=== PATIENT | female | born 2000 | race Caucasian/White ===

== ENCOUNTER 2023-12-02 15:56 | Inpatient (IN) | payer MEDICARE, MEDICAID ==
[2023-12-02] MEDS: Sodium Chloride 0.9% 10 ML Syringe FLUSH PRN (17:04)
[2023-12-02 17:34] LABS: BASOPHILS PERCENT AUTO 0.3 % (0.0-1.0); HEMATOCRIT 49.4 % (37.0-47.0); HEMOGLOBIN 15.9 gm/dl (12.0-16.0); IMMATURE GRAN ABSOLUTE AUTO 0.06 K/mm3 (0.00-0.05); IMMATURE GRAN PERCENT AUTO 0.4 % (0.0-0.4); LYMPHOCYTES ABSOLUTE AUTO 1.3 K/mm3 (1.0-4.8); MEAN CORPUSCULAR HEMOGLOBIN 30.8 pg (28.0-32.0); MEAN CORPUSCULAR HGB CONC 32.2 g/dl (32.0-36.0); MEAN CORPUSCULAR VOLUME 95.6 fl (83.0-99.0); MEAN PLATELET VOLUME 8.8 fl (9.4-12.3); MONOCYTES PERCENT AUTO 6.8 % (0.0-8.0); NEUTROPHILS ABSOLUTE AUTO 12.5 K/mm3 (1.8-7.7); NEUTROPHILS PERCENT AUTO 83.5 % (41.0-71.0); PLATELET COUNT,PLT 511 K/mm3 (150-400); RED BLOOD CELL COUNT 5.17 M/mm3 (4.10-5.30); WHITE BLOOD CELL COUNT,WBC 14.97 K/mm3 (3.9-11.3)
[2023-12-02] MEDS: Dextrose 5%-0.9% NaCl 1,000 ML IV SCH (17:38)
[2023-12-02] MEDS: Ondansetron 4 MG/2 ML SDV IVPUSH ONE (17:38)
[2023-12-02 17:54] LABS: A/G RATIO 1.1 (1-2); ALANINE AMINOTRANSFERASE,ALT 11 U/L (14-59); ALBUMIN 4.5 g/dl (3.4-5.0); ALKALINE PHOSPHATASE 100 U/L (46-116); ANION GAP 32.4 (5-15); BILIRUBIN TOTAL 0.8 mg/dL (0.2-1.0); BLOOD UREA NITROGEN,BUN 16 mg/dL (7-18); CALCIUM 9.4 mg/dL (8.5-10.1); CHLORIDE,CL 102 mEq/L (98-107); CREATININE 0.2 mg/dL (0.55-1.02); ESTIMATED GFR 167 mL/min (>60); GLUCOSE RANDOM 65 mg/dL (70-99); LIPASE 11 U/L (16-77); PROTEIN TOTAL,TP 8.5 g/dl (6.4-8.2); SODIUM,NA 139 mEq/L (136-145)
[2023-12-02 17:57] LABS: CARBON DIOXIDE,CO2 9 mEq/L (21-32)
[2023-12-02 17:58] LABS: POTASSIUM,K 4.4 mEq/L (3.5-5.1)
[2023-12-02 17:59] LABS: ASPARTATE AMNIOTRANSFERASE,AST 32 U/L (15-37)
[2023-12-02 18:00] LABS: LACTIC ACID 1.4 mmol/L (0.4-2.0)
[2023-12-02] MEDS: diphenhydrAMINE 50 MG/ML SDV IVPUSH ONE (18:42)
[2023-12-02] MEDS: Metoclopramide 10 MG/2 ML SDV IVPUSH ONE (18:43)
[2023-12-02] MEDS ORDERED: Dextrose 5%-0.9% NaCl 500 ML IV SCH (18:45)
[2023-12-02] MEDS: Sodium Chloride 0.9% 1,000 ML IV SCH (19:11)
[2023-12-02] MEDS: Hydrocortisone Sodium Succinate 100 MG/2 ML SDV IVPUSH ONE (19:12)
[2023-12-02] MEDS ORDERED: Ondansetron 4 MG/2 ML SDV IVPUSH PRN (19:15)
[2023-12-02] MEDS ORDERED: Morphine 2 MG/ML SYRINGE IVPUSH PRN (19:16)
[2023-12-02] MEDS ORDERED: Naloxone 0.4 MG/ML SDV IVPUSH PRN (19:16)
[2023-12-02] MEDS ORDERED: Acetaminophen 325 MG Tab PO PRN (19:59)
[2023-12-02] MEDS ORDERED: Ondansetron 4 MG Tab.DIS PO PRN (19:59)
[2023-12-02] MEDS ORDERED: oxyCODONE 5 MG Tab PO PRN (19:59)
[2023-12-02] MEDS ORDERED: Sennosides/Docusate Sodium 50-8.6 MG Tab PO PRN (19:59)
[2023-12-02] MEDS: cefTRIAXone 2 GM in Sodium Chloride 0.9% 100 ML IV SCH (20:22)
[2023-12-02] MEDS: Pantoprazole 40 MG Vial IVPUSH SCH (20:50)
[2023-12-02] MEDS: metroNIDAZOLE/Normal Saline 500 MG in Premix Bag 1 BAG IV SCH (21:28)
[2023-12-02 22:59] LABS: APPEARANCE,URINE CLEAR (Clear); BILIRUBIN,URINE NEGATIVE (Negative); COLOR,URINE YELLOW (Yellow); GLUCOSE,URINE TRACE (Negative); KETONES,URINE 4+ (Negative); LEUKOCYTE ESTERASE,URINE NEGATIVE (Negative); NITRITE,URINE NEGATIVE (Negative); OCCULT BLOOD,URINE 1+ (Negative); PH,URINE 5.5 (5.0-8.0); PROTEIN,URINE NEGATIVE (Negative); UROBILINOGEN,URINE 0.2 (0.2-1.0)
[2023-12-02 23:07] LABS: BACTERIA,URINE MODERATE /hpf (FEW); EPITHELIAL CELLS,URINE 0-5 /hpf (0-5); MUCUS,URINE FEW /hpf (FEW); WBC,URINE 0-5 /hpf (0-5)
[2023-12-02] MEDS: Lactated Ringers 1,000 ML IV SCH (23:42)
[2023-12-02] MEDS: Melatonin 3 MG Tab PO PRN (23:42)
[2023-12-03 05:55] LABS: BASOPHILS PERCENT AUTO 0.2 % (0.0-1.0); HEMATOCRIT 37.8 % (37.0-47.0); IMMATURE GRAN ABSOLUTE AUTO 0.05 K/mm3 (0.00-0.05); IMMATURE GRAN PERCENT AUTO 0.4 % (0.0-0.4); LYMPHOCYTES PERCENT AUTO 8.1 % (24.0-44.0); MEAN CORPUSCULAR HEMOGLOBIN 31.1 pg (28.0-32.0); MEAN CORPUSCULAR HGB CONC 33.3 g/dl (32.0-36.0); MEAN CORPUSCULAR VOLUME 93.3 fl (83.0-99.0); MEAN PLATELET VOLUME 8.4 fl (9.4-12.3); MONOCYTES PERCENT AUTO 8.1 % (0.0-8.0); NEUTROPHILS ABSOLUTE AUTO 10.5 K/mm3 (1.8-7.7); NEUTROPHILS PERCENT AUTO 83.2 % (41.0-71.0); RED BLOOD CELL COUNT 4.05 M/mm3 (4.10-5.30); WHITE BLOOD CELL COUNT,WBC 12.63 K/mm3 (3.9-11.3)
[2023-12-03 06:11] LABS: HEMOGLOBIN 12.6 gm/dl (12.0-16.0); PLATELET COUNT,PLT 374 K/mm3 (150-400)
[2023-12-03 06:21] LABS: ALBUMIN 3.2 g/dl (3.4-5.0); ANION GAP 15.5 (5-15); CALCIUM 8.2 mg/dL (8.5-10.1); CREATININE 0.4 mg/dL (0.55-1.02); EST CRCL DRUG DOSING (CG) 113.83 mL/min; MAGNESIUM 1.6 mg/dL (1.8-2.4); PHOSPHORUS 1.7 mg/dL (2.6-4.7); PROTEIN TOTAL,TP 6.4 g/dl (6.4-8.2)
[2023-12-03 06:32] LABS: POTASSIUM,K 2.5 mEq/L (3.5-5.1)
[2023-12-03] MEDS: Potassium Chloride 10 MEQ in Premix Bag 1 BAG IV SCH (07:18)
[2023-12-03] MEDS: Potassium Chloride 20 MEQ Tab.ER PO ONE (07:18)
[2023-12-03] MEDS ORDERED: Enoxaparin 40 MG/0.4 ML Syringe SUBCUT SCH (09:00)
[2023-12-03] MEDS ORDERED: [UNRECOGNIZED DRUG - OTHER] PO SCH (09:00)
[2023-12-03] MEDS: Citalopram 20 MG Tab PO SCH (10:46)
[2023-12-03] MEDS: Cholecalciferol (Vitamin D3) 25 MCG Tab PO SCH (10:46)
[2023-12-03] MEDS: Rivaroxaban 10 MG Tab PO SCH (10:46)
[2023-12-03] MEDS ORDERED: Albuterol 0.083% 2.5 MG/3 ML Neb Soln NEB PRN (11:54)
[2023-12-03] MEDS: guaiFENesin 600 MG Tab.ER PO SCH (14:20)
[2023-12-03] MEDS: metroNIDAZOLE/Normal Saline 500 MG in Premix Bag 1 BAG IV SCH (15:05)
[2023-12-03] MEDS: Albuterol/Ipratropium 3.0-0.5 MG/3 ML Neb Soln NEB SCH (15:38)
[2023-12-03] MEDS: NS + KCl 20mEq/L 1,000 ML IV SCH (16:23)
[2023-12-03] MEDS: Magnesium Sulfate/Water 2 GM in Premix Bag 1 BAG IV ONE ×2 (16:24→16:31)
[2023-12-03] MEDS: Sodium Chloride 0.9% 1,000 ML IV ONE (18:14)
[2023-12-03 20:10] LABS: HEMOGLOBIN A1C 4.7 %
[2023-12-03] MEDS: guaiFENesin 600 MG Tab.ER SCH (21:04)
[2023-12-03] MEDS: Potassium Phosphates 30 MMOLE in Sodium Chloride 0.9% 500 ML IV ONE (21:17)
[2023-12-04] MEDS: guaiFENesin 100 MG/5 ML Soln 10 ML UD Cup PO SCH (00:20)
[2023-12-04] MEDS: LORazepam 2 MG/ML SDV IVPUSH PRN (02:04)
[2023-12-04 09:51] LABS: BASOPHILS PERCENT AUTO 0.7 % (0.0-1.0); EOSINOPHILS PERCENT AUTO 0.5 % (0.0-6.0); HEMOGLOBIN 12.4 gm/dl (12.0-16.0); IMMATURE GRAN ABSOLUTE AUTO 0.02 K/mm3 (0.00-0.05); IMMATURE GRAN PERCENT AUTO 0.5 % (0.0-0.4); LYMPHOCYTES ABSOLUTE AUTO 1.5 K/mm3 (1.0-4.8); LYMPHOCYTES PERCENT AUTO 34.9 % (24.0-44.0); MEAN CORPUSCULAR HEMOGLOBIN 30.7 pg (28.0-32.0); MEAN CORPUSCULAR HGB CONC 32.6 g/dl (32.0-36.0); MEAN CORPUSCULAR VOLUME 94.1 fl (83.0-99.0); MEAN PLATELET VOLUME 8.4 fl (9.4-12.3); MONOCYTES ABSOLUTE AUTO 0.3 K/mm3 (0.0-0.8); MONOCYTES PERCENT AUTO 7.1 % (0.0-8.0); NEUTROPHILS ABSOLUTE AUTO 2.5 K/mm3 (1.8-7.7); NEUTROPHILS PERCENT AUTO 56.3 % (41.0-71.0); PLATELET COUNT,PLT 302 K/mm3 (150-400); RED BLOOD CELL COUNT 4.04 M/mm3 (4.10-5.30); WHITE BLOOD CELL COUNT,WBC 4.39 K/mm3 (3.9-11.3)
[2023-12-04 10:20] LABS: A/G RATIO 1.2 (1-2); ANION GAP 11.7 (5-15); BILIRUBIN TOTAL 0.6 mg/dL (0.2-1.0); CALCIUM 8.1 mg/dL (8.5-10.1); CREATININE 0.2 mg/dL (0.55-1.02); EST CRCL DRUG DOSING (CG) 227.66 mL/min; PROTEIN TOTAL,TP 5.5 g/dl (6.4-8.2)
[2023-12-04 10:41] LABS: POTASSIUM,K 4.7 mEq/L (3.5-5.1)
[2023-12-05 08:28] LABS: BASOPHILS ABSOLUTE AUTO 0.1 K/mm3 (0.0-0.2); BASOPHILS PERCENT AUTO 1.5 % (0.0-1.0); EOSINOPHILS ABSOLUTE AUTO 0.1 K/mm3 (0.0-0.4); EOSINOPHILS PERCENT AUTO 2.8 % (0.0-6.0); HEMATOCRIT 38.8 % (37.0-47.0); HEMOGLOBIN 12.7 gm/dl (12.0-16.0); IMMATURE GRAN ABSOLUTE AUTO 0.01 K/mm3 (0.00-0.05); IMMATURE GRAN PERCENT AUTO 0.3 % (0.0-0.4); LYMPHOCYTES ABSOLUTE AUTO 1.8 K/mm3 (1.0-4.8); LYMPHOCYTES PERCENT AUTO 46.6 % (24.0-44.0); MEAN CORPUSCULAR HEMOGLOBIN 30.7 pg (28.0-32.0); MEAN CORPUSCULAR HGB CONC 32.7 g/dl (32.0-36.0); MEAN CORPUSCULAR VOLUME 93.7 fl (83.0-99.0); MEAN PLATELET VOLUME 8.5 fl (9.4-12.3); MONOCYTES ABSOLUTE AUTO 0.2 K/mm3 (0.0-0.8); MONOCYTES PERCENT AUTO 5.9 % (0.0-8.0); NEUTROPHILS ABSOLUTE AUTO 1.7 K/mm3 (1.8-7.7); NEUTROPHILS PERCENT AUTO 42.9 % (41.0-71.0); PLATELET COUNT,PLT 319 K/mm3 (150-400); RED BLOOD CELL COUNT 4.14 M/mm3 (4.10-5.30); WHITE BLOOD CELL COUNT,WBC 3.88 K/mm3 (3.9-11.3)
[2023-12-05 08:57] LABS: ALANINE AMINOTRANSFERASE,ALT 16 U/L (14-59); ALBUMIN 2.9 g/dl (3.4-5.0); ALKALINE PHOSPHATASE 58 U/L (46-116); ANION GAP 13.5 (5-15); ASPARTATE AMNIOTRANSFERASE,AST 17 U/L (15-37); BILIRUBIN TOTAL 0.9 mg/dL (0.2-1.0); BLOOD UREA NITROGEN,BUN 4 mg/dL (7-18); CALCIUM 8.6 mg/dL (8.5-10.1); CARBON DIOXIDE,CO2 24 mEq/L (21-32); CHLORIDE,CL 103 mEq/L (98-107); GLUCOSE RANDOM 103 mg/dL (70-99); MAGNESIUM 1.9 mg/dL (1.8-2.4); POTASSIUM,K 4.5 mEq/L (3.5-5.1); PROTEIN TOTAL,TP 5.8 g/dl (6.4-8.2); SODIUM,NA 136 mEq/L (136-145)
[2023-12-05 09:11] LABS: CREATININE < 0.2 mg/dL (0.55-1.02); EST CRCL DRUG DOSING (CG) 253.45 mL/min
== END 2023-12-05 13:06 | disposition home or self-care (01) | DRG 177 ==
LOC: JD.ED 15:56 → MERGE 19:10 → JD.MS 19:10
PROVIDERS: ADMIT Student in an Organized Health Care Education/Training Program; ATTEND Student in an Organized Health Care Education/Training Program
DX: J69.0 Pneumonitis due to inhalation of food and vomit (principal); R11.2 Nausea with vomiting, unspecified; J96.01 Acute respiratory failure with hypoxia; G12.9 Spinal muscular atrophy, unspecified; E46 Unspecified protein-calorie malnutrition; E87.20 Acidosis, unspecified; Z68.1 Body mass index [BMI] 19.9 or less, adult; R64 Cachexia; E87.6 Hypokalemia; E83.42 Hypomagnesemia; E83.39 Other disorders of phosphorus metabolism; F32.A Depression, unspecified; G71.00 Muscular dystrophy, unspecified; F41.9 Anxiety disorder, unspecified; E86.0 Dehydration; R79.89 Other specified abnormal findings of blood chemistry; Z93.1 Gastrostomy status; Z88.0 Allergy status to penicillin; Z79.01 Long term (current) use of anticoagulants; Z79.899 Other long term (current) drug therapy; Z87.440 Personal history of urinary (tract) infections; Z98.890 Other specified postprocedural states
CPT/HCPCS: 36415; 71045; 71045-26; 71250; 71250-26; 80053; 81001; 81025; 82010; 82550; 82947; 83036; 83605; 83690; 83735; 84100; 85025; 86140; 87040; 93005; 94640; 94667; 94668; 94760; 94761; 96361; 96374; 96375; 97161-GP; 99285-25; A9270-GY; J0696; J1200; J1720; J1836; J2060; J2405; J2470; J2765; J3475; J3480; J3490; J7030; J7040; J7042; J7120; J7620-GY; U0002